=== PATIENT | female | born 1940 | race Asian ===

== ENCOUNTER 2018-05-31 05:46 | Day surgery (SDC) | payer MEDICARE, MEDICAID ==
[2018-05-28 14:32] LABS: BASOPHILS # (AUTO) 0.03 x10^3/uL (0-0.1); BASOPHILS % (AUTO) 1 % (0-1); EOSINOPHILS # (AUTO) 0.04 x10^3/uL (0-0.4); EOSINOPHILS % (AUTO) 1 % (1-7); LYMPHOCYTES # (AUTO) 1.78 x10^3/uL (1-3.4); LYMPHOCYTES % (AUTO) 29 % (22-44); MD NO; MEAN CORPUSCULAR HEMOGLOBIN 31.7 pg (27.0-34.8); MEAN CORPUSCULAR HGB CONC 33.4 g/dL (32.4-35.8); MEAN PLATELET VOLUME 7.6 fL (7.4-10.4); MONOCYTES # (AUTO) 0.44 x10^3/uL (0.2-0.8); MONOCYTES % (AUTO) 7 % (2-9); NEUTROPHILS # (AUTO) 3.81 x10^3/uL (1.8-6.8); NEUTROPHILS % (AUTO) 63 % (42-75); PLATELET COUNT 266 x10^3/uL (130-400); RED BLOOD COUNT 4.14 x10^6/uL (3.82-5.3); RED CELL DISTRIBUTION WIDTH 14.3 % (9.6-15.2)
[2018-05-28 14:40] LABS: ALBUMIN 4.1 g/dL (3.4-5.0); ANION GAP 5 mmol/L (5-15); CALCIUM 8.9 mg/dL (8.5-10.1); CHLORIDE 106 mmol/L (98-107)
[2018-05-28 14:43] LABS: ALANINE AMINOTRANSFERASE 41 U/L (12-78); ALKALINE PHOSPHATASE 68 U/L (45-117); BILIRUBIN,TOTAL 0.7 mg/dL (0.2-1.0); CREATININE 0.93 mg/dL (0.55-1.02); TOTAL PROTEIN 7.7 g/dL (6.4-8.2)
[2018-05-28 14:49] LABS: INTERNATIONAL NORMALIZED RATIO 0.96 (0.93-1.1)
[~2018-05-31] VITALS: Ht 152.4 cm; Wt 52.7 kg
[~2018-05-31 05:46] MED LIST: ALPR0.5T10 SL; CALC600T4 PO; CART1TAB4 PO; CHOL3000 PO; DIPH25CA61 PO; FISH1CAP PO; LISI-167 PO; MULT-706 PO; MULT-717 PO; SIMV10TA3 PO
[2018-05-31] MEDS ORDERED: LACTATED RINGERS 1,000 ML IV SCH (06:49)
[2018-05-31] MEDS ORDERED: BUPIVACAINE/PF-EPI 0.25% 1:200K ONE (06:52)
[2018-05-31 06:53] VITALS: BP 145/87
[2018-05-31] MEDS ORDERED: LIDOCAINE-MPF 1%, 2ML INFIL ONE (07:00)
[2018-05-31] MEDS ORDERED: MIDAZOLAM 1 MG/ML, 2ML ONE (07:06)
[2018-05-31] MEDS ORDERED: FENTANYL PF 250 MCG/5ML ONE (07:07)
[2018-05-31] MEDS ORDERED: GABAPENTIN 300 MG CAPSULE PO ONE (07:30)
[2018-05-31] MEDS ORDERED: ACETAMINOPHEN 500 MG TABLET PO ONE (07:30)
[2018-05-31] MEDS ORDERED: SCOPOLAMINE PATCH, 1.5MG PATCH.TD72 TD ONE (07:30)
[2018-05-31] MEDS ORDERED: DEXAMETHASONE 4 MG/ML, 1ML ONE (07:56)
[2018-05-31] MEDS ORDERED: GLYCOPYRROLATE 0.2MG/1ML, 5ML ONE (07:56)
[2018-05-31] MEDS ORDERED: PROPOFOL 10 MG/ML, 20ML ONE (07:56)
[2018-05-31] MEDS ORDERED: CEFAZOLIN 1,000 MG ONE (07:56)
[2018-05-31] MEDS ORDERED: ROCURONIUM 10MG/ML,5ML ONE (07:56)
[2018-05-31] MEDS ORDERED: NEOSTIGMINE 1 MG/ML, 10ML ONE (07:56)
[2018-05-31] MEDS ORDERED: SUCCINYLCHOLINE 20 MG/ML, 10ML ONE (07:56)
[2018-05-31] MEDS ORDERED: ONDANSETRON 2MG/ML, 2ML ONE (07:56)
[2018-05-31] MEDS ORDERED: ONDANSETRON 2MG/ML, 2ML IVPush PRN (08:30)
[2018-05-31] MEDS ORDERED: OXYcodone 5 MG/5 ML ORAL.SOL UDC PO PRN (08:30)
[2018-05-31] MEDS ORDERED: MEPERIDINE/PF 25MG/0.5ML IVPush PRN (08:30)
[2018-05-31] MEDS ORDERED: METOCLOPRAMIDE 5 MG/ML, 2ML IV PRN (08:30)
[2018-05-31] MEDS ORDERED: PROMETHAZINE 25 MG/ML, 1ML IV PRN (08:30)
[2018-05-31] MEDS ORDERED: KETOROLAC 30 MG/1 ML IV PRN (08:30)
[2018-05-31] MEDS ORDERED: ALBUTEROL SULFATE 2.5 MG/3 ML NPPB PRN (08:30)
[2018-05-31] MEDS ORDERED: LABETALOL 5MG/ML, 20ML IV PRN (08:30)
[2018-05-31] MEDS ORDERED: HYDROmorphone 1 MG/ML, 1ML IV PRN (08:30)
[2018-05-31] MEDS ORDERED: hydrALAzine 20 MG/ML, 1ML IV PRN (08:30)
[2018-05-31] MEDS ORDERED: FENTANYL PF 100 MCG/2ML IV PRN (08:30)
[2018-05-31] MEDS ORDERED: KETOROLAC 30 MG/1 ML ONE (08:59)
[2018-05-31] MEDS ORDERED: KETOROLAC 30 MG/1 ML IVPush SCH (09:00)
== END 2018-05-31 12:15 ==
LOC: OUT 05:46
PROVIDERS: ATTEND Specialist
DX: D07.1 Carcinoma in situ of vulva (principal); N95.2 Postmenopausal atrophic vaginitis; N90.89 Other specified noninflammatory disorders of vulva and perineum; E78.5 Hyperlipidemia, unspecified; I10 Essential (primary) hypertension; Z87.39 Personal history of other diseases of the musculoskeletal system and connective tissue
CPT/HCPCS: 36415; 56620; 71046; 80053; 85025; 85610; 85730; 88305; 93005; J0330; J0690; J1100; J1885; J2250; J2405; J2704; J2710; J3010; J3490; J7120

== ENCOUNTER 2019-12-15 12:14 | Day surgery (SDC) | payer MEDICARE, MEDICAID ==
[2019-12-14 11:51] LABS: MICROSCOPIC INDICATED
[2019-12-14 12:01] LABS: ALANINE AMINOTRANSFERASE 33 U/L (12-78); ALBUMIN 3.9 g/dL (3.4-5.0); ANION GAP 6 mmol/L (5-15); CALCIUM 8.7 mg/dL (8.5-10.1); CHLORIDE 107 mmol/L (98-107); CREATININE 0.92 mg/dL (0.55-1.02)
[2019-12-14 12:03] LABS: ALKALINE PHOSPHATASE 64 U/L (45-117); BILIRUBIN,TOTAL 0.4 mg/dL (0.2-1.0); TOTAL PROTEIN 7.7 g/dL (6.4-8.2)
[~2019-12-15] VITALS: Ht 147.3 cm; Wt 53.3 kg
[~2019-12-15 12:14] MED LIST changes: +OMEG1CAP6 PO; +OMEP20TA62 PO
[2019-12-15 12:54] VITALS: BP 173/95
[2019-12-15] MEDS ORDERED: LACTATED RINGERS 1,000 ML IV SCH (12:57)
[2019-12-15] MEDS ORDERED: ACETAMINOPHEN 500 MG TABLET PO ONE (13:00)
[2019-12-15] MEDS ORDERED: GABAPENTIN 300 MG CAPSULE PO ONE (13:00)
[2019-12-15] MEDS ORDERED: FENTANYL PF 100 MCG/2ML ONE ×2 (13:44→14:45)
[2019-12-15] MEDS ORDERED: FENTANYL PF 100 MCG/2ML IV PRN (14:00)
[2019-12-15] MEDS ORDERED: OXYcodone 5 MG/5 ML ORAL.SOL UDC PO PRN (14:00)
[2019-12-15] MEDS ORDERED: LABETALOL 5MG/ML, 20ML IV PRN (14:00)
[2019-12-15] MEDS ORDERED: hydrALAzine 20 MG/ML, 1ML IV PRN (14:00)
[2019-12-15] MEDS ORDERED: HYDROmorphone 2 MG/ML, 1ML IVPush PRN (14:00)
[2019-12-15] MEDS ORDERED: MEPERIDINE/PF 25MG/ML,1ML IVPush PRN (14:00)
[2019-12-15] MEDS ORDERED: HALOPERIDOL 5 MG/ML IV PRN (14:00)
[2019-12-15] MEDS ORDERED: PROMETHAZINE 25 MG/ML, 1ML IV PRN (14:00)
[2019-12-15] MEDS ORDERED: SCOPOLAMINE PATCH, 1.5MG PATCH.TD72 TD ONE (14:01)
[2019-12-15] MEDS ORDERED: ONDANSETRON 2MG/ML, 2ML ONE (14:52)
[2019-12-15] MEDS ORDERED: PROPOFOL 10 MG/ML, 20ML ONE (14:52)
[2019-12-15] MEDS ORDERED: DEXAMETHASONE 4 MG/ML, 1ML ONE (14:52)
[2019-12-15] MEDS ORDERED: CEFAZOLIN 1,000 MG ONE (14:52)
[2019-12-15] MEDS ORDERED: ONDANSETRON 2MG/ML, 2ML IV PRN (15:00)
[2019-12-15] MEDS ORDERED: OXYcodone/APAP 5/325MG TABLET PO PRN (15:00)
[2019-12-15] MEDS ORDERED: hydrALAzine 20 MG/ML, 1ML ONE (15:42)
[2019-12-15] MEDS ORDERED: IBUPROFEN 200 MG TABLET PO PRN (16:00)
== END 2019-12-15 17:50 | disposition home or self-care (01) ==
LOC: OUT 12:14
PROVIDERS: ATTEND Urology
DX: C67.9 Malignant neoplasm of bladder, unspecified (principal); N34.2 Other urethritis; E78.00 Pure hypercholesterolemia, unspecified; I10 Essential (primary) hypertension; Z79.899 Other long term (current) drug therapy; Z98.890 Other specified postprocedural states
CPT/HCPCS: 36415; 52204; 80053; 81001; 87086; 88305; 93005; J0360; J0690; J1100; J2405; J2704; J3010; J7120